=== PATIENT | female | born 1990 | race Hispanic/Latino ===

== ENCOUNTER 2019-09-02 16:45 | Emergency (ER) | payer BC ==
[2019-09-02] MEDS ORDERED: ACETAMINOPHEN EXTRA STRENGTH 500 MG TABLET ONE (17:52)
[2019-09-02] MEDS ORDERED: SODIUM CHLORIDE 0.9% 1000ML 1,000 ML IV ONE (18:32)
[2019-09-02] MEDS ORDERED: POTASSIUM CHLORIDE 20 MEQ ERTAB PO ONE (22:01)
== END 2019-09-03 00:42 | disposition home or self-care (01) ==
LOC: EDH 16:45
DX: B34.9 Viral infection, unspecified (principal); Z20.828 Contact with and (suspected) exposure to other viral communicable diseases; Z88.6 Allergy status to analgesic agent
CPT/HCPCS: 36415; 71045; 80053; 81001; 83605; 84702; 85025; 87633; 87804 ×2; 87880; 93005 ×2; 99285; J7030; U0003